=== PATIENT | male | born 1960 | race Caucasian/White ===

== ENCOUNTER 2019-07-28 19:25 | Inpatient (IN) ==
[2019-07-28] MEDS ORDERED: *HR* LORazepam 2 MG/ML VIAL IVP ONE (19:33)
[2019-07-28 19:46] LABS: Basophils % 0.6 %; Eosinophils % 0.2 %; Hematocrit 42.3 % (37.5-50.1); Hemoglobin 15.5 g/dL (12.9-16.9); Immature Granulocytes % 0.2 % (0-4); Lymphocytes # 1.6 K/mcL (0.6-4.6); Lymphocytes % 24.8 %; Mean Corpuscular HGB Conc 36.6 g/dL (31.6-35.5); Mean Corpuscular Hemoglobin 30.3 pg (28.0-33.3); Mean Corpuscular Volume 82.6 fL (83.0-100.0); Mean Platelet Volume 9.8 fL (9.4-12.4); Monocytes # 0.5 K/mcL (0.0-1.3); Monocytes % 7.8 %; Neutrophils # 4.4 K/mcL (1.6-8.9); Platelet Count 252 K/mcL (140-400); Red Blood Count 5.12 M/mcL (4.19-5.50); Segmented Neutrophils % 66.4 %; White Blood Count 6.5 K/mcL (4.3-11.1)
[2019-07-28 19:50] LABS: Bilirubin,Urine Negative (Negative); Blood,Urine Negative (Negative); Clarity,Urine Clear (Clear); Color,Urine Yellow (Yellow); Glucose,Urine (UA) 250 mg/dL (Normal); Ketones,Urine 40 mg/dL (Negative); Leukocyte Esterase,Urine Negative (Negative); Nitrite,Urine Negative (Negative); Protein,Urine Negative (Neg-Trace); Urobilinogen,Urine Normal (Normal)
[2019-07-28 20:00] LABS: Amphetamine Screen,Urine Negative ng/mL (Cutoff=1000); Barbiturate Screen,Urine Negative ng/mL (Cutoff=200); Benzodiazepines Screen,Urine Negative ng/mL (Cutoff=200); Cannabinoid Screen,Urine Negative ng/mL (Cutoff = 50); Cocaine Screen,Urine Negative ng/mL (Cutoff= 300); Opiate Screen,Urine Negative ng/mL (Cutoff=300); Phencyclidine Screen,Urine Negative ng/mL (Cutoff=25)
[2019-07-28 20:08] LABS: Acetaminophen < 10 mcg/mL (10-20); BUN/Creatinine Ratio 19 (6-26); Blood Urea Nitrogen 15 mg/dL (8-23); Calcium 10.1 mg/dL (8.6-10.3); Carbon Dioxide 26 mEq/L (23-29); Chloride 98 mEq/L (98-107); Ethanol < 10 mg/dL (Less than 10); Glucose 240 mg/dL (70-105); Osmolality,Calculated 289 (280-300); Potassium 3.3 mEq/L (3.5-5.1); Salicylate < 2.5 mg/dL (15.0-30.0); Sodium 135 mEq/L (136-145); Troponin I < 0.03 ng/mL (< 0.04); eGFR For African Americans > 60 (> 60); eGFR For Non-African Americans > 60 (> 60)
[2019-07-29] MEDS ORDERED: *HR* LORazepam 1 MG TABLET PO PRN (01:10)
[2019-07-29] MEDS ORDERED: *HR* LORazepam 2 MG/ML VIAL IM PRN (01:10)
[2019-07-29] MEDS ORDERED: Mag Hydrox/Al Hydrox/Simeth 30 ML UDC PO PRN (01:10)
[2019-07-29] MEDS ORDERED: Acetaminophen 325 MG TABLET PO PRN (01:10)
[2019-07-29] MEDS ORDERED: Haloperidol Lactate 5 MG/ML VIAL IM PRN (01:10)
[2019-07-29] MEDS ORDERED: hydrOXYzine pamoate 25 MG CAPSULE PO PRN (01:10)
[2019-07-29] MEDS ORDERED: MOM Conc 10 ML UD.LIQ PO PRN (01:10)
[2019-07-29] MEDS ORDERED: traZODone 50 MG TABLET PO PRN (01:10)
[2019-07-29] MEDS: ARIPiprazole 5 MG TABLET PO SCH (10:45)
[2019-07-29] MEDS: Saline Nasal Spray 44 ML BOTTLE NS PRN ×2 (18:16→20:59)
[2019-07-29] MEDS: QUEtiapine Fumarate 25 MG TABLET PO SCH (20:57)
[2019-07-29] MEDS: Lisinopril 20 MG TABLET PO SCH (20:57)
[2019-07-29] MEDS: Neosporin OINT 15 GM TUBE TP SCH (20:58)
[2019-07-30] MEDS: Saline Nasal Spray 44 ML BOTTLE NS PRN ×5 (03:19→20:48)
[2019-07-30] MEDS: Multivit/Ca/Min/Fe/FA 1 TAB TABLET PO SCH (08:54)
[2019-07-30] MEDS: amLODIPine 5 MG TABLET PO SCH (08:54)
[2019-07-30] MEDS: *HR* Metformin 500 MG TABLET PO SCH ×2 (08:54→17:35)
[2019-07-30] MEDS: ARIPiprazole 5 MG TABLET PO SCH (08:55)
[2019-07-30] MEDS: hydroCHLOROthiazide 25 MG TABLET PO SCH (08:55)
[2019-07-30] MEDS: Lisinopril 20 MG TABLET PO SCH ×2 (08:55→20:47)
[2019-07-30] MEDS: (Linagliptin [Tradjenta] 5 MG) PO SCH (09:00)
[2019-07-30] MEDS: Neosporin OINT 15 GM TUBE TP SCH ×2 (13:03→20:48)
[2019-07-30] MEDS: QUEtiapine Fumarate 25 MG TABLET PO SCH (20:47)
[2019-07-31] MEDS: Saline Nasal Spray 44 ML BOTTLE NS PRN ×3 (08:22→20:55)
[2019-07-31] MEDS: hydroCHLOROthiazide 25 MG TABLET PO SCH (08:23)
[2019-07-31] MEDS: Multivit/Ca/Min/Fe/FA 1 TAB TABLET PO SCH (08:23)
[2019-07-31] MEDS: *HR* Metformin 500 MG TABLET PO SCH ×2 (08:23→17:26)
[2019-07-31] MEDS: ARIPiprazole 5 MG TABLET PO SCH (08:23)
[2019-07-31] MEDS: (Linagliptin [Tradjenta] 5 MG) PO SCH (08:24)
[2019-07-31] MEDS: amLODIPine 5 MG TABLET PO SCH (08:24)
[2019-07-31] MEDS: Lisinopril 20 MG TABLET PO SCH ×2 (08:24→20:53)
[2019-07-31] MEDS: Neosporin OINT 15 GM TUBE TP SCH ×2 (08:25→20:55)
[2019-07-31] MEDS: QUEtiapine Fumarate 25 MG TABLET PO SCH (20:53)
[2019-08-01] MEDS: Saline Nasal Spray 44 ML BOTTLE NS PRN ×3 (03:09→11:33)
[2019-08-01] MEDS: hydroCHLOROthiazide 25 MG TABLET PO SCH (07:55)
[2019-08-01] MEDS: Multivit/Ca/Min/Fe/FA 1 TAB TABLET PO SCH (07:55)
[2019-08-01] MEDS: *HR* Metformin 500 MG TABLET PO SCH (07:55)
[2019-08-01] MEDS: ARIPiprazole 5 MG TABLET PO SCH (07:55)
[2019-08-01] MEDS: Lisinopril 20 MG TABLET PO SCH (07:55)
[2019-08-01] MEDS: (Linagliptin [Tradjenta] 5 MG) PO SCH (07:56)
[2019-08-01] MEDS: amLODIPine 5 MG TABLET PO SCH (07:59)
[2019-08-01] MEDS: Neosporin OINT 15 GM TUBE TP SCH (08:00)
[2019-08-01 09:11] VITALS: BP 153/91
== END 2019-08-01 12:55 | disposition home or self-care (01) | DRG 880 ==
LOC: EMEROOARM 19:25 → 1ANU 23:26
PROVIDERS: ADMIT Psychiatry & Neurology Psychiatry; ATTEND Psychiatry & Neurology Psychiatry

== ENCOUNTER 2020-03-08 15:45 | Inpatient (IN) ==
[2020-03-08 16:25] LABS: Basophils % 0.4 %; Eosinophils % 0.2 %; Hematocrit 44.7 % (37.5-50.1); Hemoglobin 15.1 g/dL (12.9-16.9); Immature Granulocytes % 0.4 % (0-4); Lymphocytes # 1.4 K/mcL (0.6-4.6); Lymphocytes % 17.8 %; Mean Corpuscular HGB Conc 33.8 g/dL (31.6-35.5); Mean Corpuscular Hemoglobin 29.3 pg (28.0-33.3); Mean Corpuscular Volume 86.8 fL (83.0-100.0); Mean Platelet Volume 9.5 fL (9.4-12.4); Monocytes # 0.7 K/mcL (0.0-1.3); Monocytes % 8.3 %; Neutrophils # 5.9 K/mcL (1.6-8.9); Platelet Count 256 K/mcL (140-400); Red Blood Count 5.15 M/mcL (4.19-5.50); Red Cell Distribution Width 12.6 % (11.5-14.5); Segmented Neutrophils % 72.9 %; White Blood Count 8.1 K/mcL (4.3-11.1)
[2020-03-08 16:37] LABS: Amphetamine Screen,Urine Negative ng/mL (Cutoff=1000); Barbiturate Screen,Urine Negative ng/mL (Cutoff=200); Benzodiazepines Screen,Urine Negative ng/mL (Cutoff=200); Cannabinoid Screen,Urine Negative ng/mL (Cutoff = 50); Cocaine Screen,Urine Negative ng/mL (Cutoff= 300); Opiate Screen,Urine Negative ng/mL (Cutoff=300); Phencyclidine Screen,Urine Negative ng/mL (Cutoff=25)
[2020-03-08 16:43] LABS: Albumin 4.6 g/dL (3.5-5.7); Albumin/Globulin Ratio 1.5 (1.1-2.2); Bilirubin,Direct 0.1 mg/dL (0.0-0.2); Bilirubin,Indirect 0.3 mg/dL (0.0-1.0); Bilirubin,Total 0.4 mg/dL (0.3-1.0); Total Protein 7.6 g/dL (6.4-8.9)
[2020-03-08 16:46] LABS: Bilirubin,Urine Negative (Negative); Blood,Urine Negative (Negative); Calcium Oxalate Crystals,Urine Present; Clarity,Urine Clear (Clear); Color,Urine Yellow (Yellow); Glucose,Urine (UA) 500 mg/dL (Normal); Hyaline Casts,Urine Moderate per lpf (None Seen); Ketones,Urine Trace mg/dL (Negative); Leukocyte Esterase,Urine Negative (Negative); Mucus,Urine Few per lpf (None-Few); Nitrite,Urine Negative (Negative); Protein,Urine 50 mg/dL (Neg-Trace); Specific Gravity,Urine > 1.030 (1.010-1.025); Squamous Epithelial Cell,Urine Few per hpf (None-Few)
[2020-03-08 16:47] LABS: Estimated Average Glucose 154 mg/dl
[2020-03-08 16:48] LABS: Acetaminophen < 10 mcg/mL (10-20); BUN/Creatinine Ratio 28 (6-26); Blood Urea Nitrogen 22 mg/dL (8-23); Calcium 10.3 mg/dL (8.6-10.3); Carbon Dioxide 31 mEq/L (23-29); Chloride 96 mEq/L (98-107); Chol/HDL Ratio 3.8 (0-4.9); Cholesterol 143 mg/dL (< 200); Ethanol < 10 mg/dL (Less than 10); Glucose 207 mg/dL (70-105); HDL Cholesterol 38 mg/dL (40-59); LDL Cholesterol,Calculated 73 mg/dL (< 100); Osmolality,Calculated 291 (280-300); Potassium 3.4 mEq/L (3.5-5.1); Salicylate < 2.5 mg/dL (15.0-30.0); Sodium 136 mEq/L (136-145); Triglycerides 158 mg/dL (< 150); eGFR For African Americans > 60 (> 60); eGFR For Non-African Americans > 60 (> 60)
[2020-03-08] MEDS ORDERED: haloperidoL 5 MG TABLET PO PRN (18:41)
[2020-03-08] MEDS ORDERED: MOM Conc 10 ML UD.LIQ PO PRN (18:41)
[2020-03-08] MEDS ORDERED: *HR* LORazepam 2 MG/ML VIAL IM PRN (18:41)
[2020-03-08] MEDS ORDERED: *HR* LORazepam 1 MG TABLET PO PRN (18:41)
[2020-03-08] MEDS ORDERED: Acetaminophen 325 MG TABLET PO PRN (18:41)
[2020-03-08] MEDS ORDERED: Haloperidol Lactate 5 MG/ML VIAL IM PRN (18:41)
[2020-03-08] MEDS ORDERED: Mag Hydrox/Al Hydrox/Simeth 30 ML UDC PO PRN (18:41)
[2020-03-08] MEDS: lisinopriL 20 MG TABLET PO SCH (20:53)
[2020-03-08] MEDS: traZODone 50 MG TABLET PO PRN (23:07)
[2020-03-08] MEDS: hydrOXYzine pamoate 25 MG CAPSULE PO PRN (23:52)
[2020-03-09] MEDS: Fluticasone Propionate Nasal 50 MCG/SPRAY BOTTLE NS SCH (08:35)
[2020-03-09] MEDS: hydroCHLOROthiazide 25 MG TABLET PO SCH (08:36)
[2020-03-09] MEDS: lisinopriL 20 MG TABLET PO SCH ×2 (08:36→20:44)
[2020-03-09] MEDS: *HR* Metformin 500 MG TABLET PO SCH ×2 (08:37→17:37)
[2020-03-09] MEDS: amLODIPine 5 MG TABLET PO SCH (08:37)
[2020-03-09] MEDS: Multivit/Ca/Min/Fe/FA 1 TAB TABLET PO SCH (08:38)
[2020-03-09] MEDS: ARIPiprazole 5 MG TABLET PO SCH (08:38)
[2020-03-09] MEDS ORDERED: ARIPiprazole 5 MG TABLET PO ONE (09:00)
[2020-03-09] MEDS: BuPROPion XL (24 HR) 150 MG TABLET PO SCH (09:44)
[2020-03-09] MEDS: traZODone 50 MG TABLET PO PRN (21:09)
[2020-03-10] MEDS: hydrOXYzine pamoate 25 MG CAPSULE PO PRN ×2 (02:10→09:13)
[2020-03-10] MEDS: Fluticasone Propionate Nasal 50 MCG/SPRAY BOTTLE NS SCH (08:26)
[2020-03-10] MEDS: lisinopriL 20 MG TABLET PO SCH ×2 (08:27→21:08)
[2020-03-10] MEDS: ARIPiprazole 5 MG TABLET PO SCH (08:27)
[2020-03-10] MEDS: hydroCHLOROthiazide 25 MG TABLET PO SCH (08:28)
[2020-03-10] MEDS: BuPROPion XL (24 HR) 150 MG TABLET PO SCH (08:28)
[2020-03-10] MEDS: amLODIPine 5 MG TABLET PO SCH (08:29)
[2020-03-10] MEDS: Multivit/Ca/Min/Fe/FA 1 TAB TABLET PO SCH (08:30)
[2020-03-10] MEDS: *HR* Metformin 500 MG TABLET PO SCH ×2 (08:30→17:05)
[2020-03-11] MEDS: traZODone 50 MG TABLET PO PRN (00:40)
[2020-03-11] MEDS: hydrOXYzine pamoate 25 MG CAPSULE PO PRN ×2 (01:55→08:30)
[2020-03-11] MEDS: ARIPiprazole 5 MG TABLET PO SCH (08:29)
[2020-03-11] MEDS: Multivit/Ca/Min/Fe/FA 1 TAB TABLET PO SCH (08:31)
[2020-03-11] MEDS: hydroCHLOROthiazide 25 MG TABLET PO SCH (08:31)
[2020-03-11] MEDS: BuPROPion XL (24 HR) 150 MG TABLET PO SCH (08:31)
[2020-03-11] MEDS: lisinopriL 20 MG TABLET PO SCH ×2 (08:31→21:00)
[2020-03-11] MEDS: amLODIPine 5 MG TABLET PO SCH (08:32)
[2020-03-11] MEDS: *HR* Metformin 500 MG TABLET PO SCH ×2 (08:32→16:32)
[2020-03-11] MEDS: Fluticasone Propionate Nasal 50 MCG/SPRAY BOTTLE NS SCH (08:32)
[2020-03-11] MEDS ORDERED: *HR* LORazepam 1 MG TABLET PO ONE (08:54)
[2020-03-11] MEDS ORDERED: ARIPiprazole 5 MG TABLET PO ONE (09:45)
[2020-03-11] MEDS: traZODone 50 MG TABLET PO SCH (21:00)
[2020-03-12] MEDS: traZODone 50 MG TABLET PO PRN (01:29)
[2020-03-12] MEDS: hydrOXYzine pamoate 25 MG CAPSULE PO PRN (01:29)
[2020-03-12] MEDS: lisinopriL 20 MG TABLET PO SCH ×2 (08:33→21:39)
[2020-03-12] MEDS: hydroCHLOROthiazide 25 MG TABLET PO SCH (08:33)
[2020-03-12] MEDS: amLODIPine 5 MG TABLET PO SCH (08:33)
[2020-03-12] MEDS: Multivit/Ca/Min/Fe/FA 1 TAB TABLET PO SCH (08:33)
[2020-03-12] MEDS: ARIPiprazole 10 MG TABLET PO SCH (08:33)
[2020-03-12] MEDS: *HR* Metformin 500 MG TABLET PO SCH ×2 (08:34→16:43)
[2020-03-12] MEDS: BuPROPion XL (24 HR) 150 MG TABLET PO SCH (08:34)
[2020-03-12] MEDS: Fluticasone Propionate Nasal 50 MCG/SPRAY BOTTLE NS SCH (08:35)
[2020-03-12] MEDS: traZODone 50 MG TABLET PO SCH (21:39)
[2020-03-13] MEDS: hydrOXYzine pamoate 25 MG CAPSULE PO PRN ×2 (00:17→23:54)
[2020-03-13] MEDS: ARIPiprazole 10 MG TABLET PO SCH (08:10)
[2020-03-13] MEDS: Multivit/Ca/Min/Fe/FA 1 TAB TABLET PO SCH (08:10)
[2020-03-13] MEDS: hydroCHLOROthiazide 25 MG TABLET PO SCH (08:10)
[2020-03-13] MEDS: amLODIPine 5 MG TABLET PO SCH (08:11)
[2020-03-13] MEDS: BuPROPion XL (24 HR) 150 MG TABLET PO SCH (08:11)
[2020-03-13] MEDS: *HR* Metformin 500 MG TABLET PO SCH ×2 (08:12→16:49)
[2020-03-13] MEDS: lisinopriL 20 MG TABLET PO SCH ×2 (08:12→20:54)
[2020-03-13] MEDS: Fluticasone Propionate Nasal 50 MCG/SPRAY BOTTLE NS SCH (08:15)
[2020-03-13] MEDS: traZODone 50 MG TABLET PO SCH (20:53)
[2020-03-14] MEDS: traZODone 50 MG TABLET PO PRN (01:23)
[2020-03-14] MEDS: Multivit/Ca/Min/Fe/FA 1 TAB TABLET PO SCH (08:24)
[2020-03-14] MEDS: hydroCHLOROthiazide 25 MG TABLET PO SCH (08:25)
[2020-03-14] MEDS: *HR* Metformin 500 MG TABLET PO SCH ×2 (08:25→17:15)
[2020-03-14] MEDS: BuPROPion XL (24 HR) 150 MG TABLET PO SCH (08:25)
[2020-03-14] MEDS: amLODIPine 5 MG TABLET PO SCH (08:26)
[2020-03-14] MEDS: ARIPiprazole 10 MG TABLET PO SCH (08:26)
[2020-03-14] MEDS: Fluticasone Propionate Nasal 50 MCG/SPRAY BOTTLE NS SCH (08:27)
[2020-03-14] MEDS: lisinopriL 20 MG TABLET PO SCH ×2 (08:27→20:29)
[2020-03-14] MEDS: traZODone 50 MG TABLET PO SCH (20:29)
[2020-03-14] MEDS: hydrOXYzine pamoate 25 MG CAPSULE PO PRN (22:43)
[2020-03-15] MEDS: lisinopriL 20 MG TABLET PO SCH ×2 (08:36→22:08)
[2020-03-15] MEDS: hydroCHLOROthiazide 25 MG TABLET PO SCH (08:37)
[2020-03-15] MEDS: *HR* Metformin 500 MG TABLET PO SCH ×2 (08:37→17:12)
[2020-03-15] MEDS: amLODIPine 5 MG TABLET PO SCH (08:41)
[2020-03-15] MEDS: BuPROPion XL (24 HR) 150 MG TABLET PO SCH (08:43)
[2020-03-15] MEDS: Multivit/Ca/Min/Fe/FA 1 TAB TABLET PO SCH (08:43)
[2020-03-15] MEDS: ARIPiprazole 10 MG TABLET PO SCH (08:43)
[2020-03-15] MEDS: Fluticasone Propionate Nasal 50 MCG/SPRAY BOTTLE NS SCH (08:44)
[2020-03-15] MEDS: traZODone 50 MG TABLET PO SCH ×2 (22:08→22:09)
[2020-03-16] MEDS: hydrOXYzine pamoate 25 MG CAPSULE PO PRN (01:28)
[2020-03-16] MEDS: ARIPiprazole 10 MG TABLET PO SCH (08:39)
[2020-03-16] MEDS: hydroCHLOROthiazide 25 MG TABLET PO SCH (08:39)
[2020-03-16] MEDS: amLODIPine 5 MG TABLET PO SCH (08:39)
[2020-03-16] MEDS: lisinopriL 20 MG TABLET PO SCH ×2 (08:40→21:58)
[2020-03-16] MEDS: BuPROPion XL (24 HR) 150 MG TABLET PO SCH (08:40)
[2020-03-16] MEDS: Multivit/Ca/Min/Fe/FA 1 TAB TABLET PO SCH (08:40)
[2020-03-16] MEDS: *HR* Metformin 500 MG TABLET PO SCH ×2 (08:41→17:23)
[2020-03-16] MEDS: Fluticasone Propionate Nasal 50 MCG/SPRAY BOTTLE NS SCH (08:43)
[2020-03-16] MEDS: traZODone 50 MG TABLET PO SCH ×2 (21:58)
[2020-03-17] MEDS: hydrOXYzine pamoate 25 MG CAPSULE PO PRN (00:31)
[2020-03-17] MEDS: BuPROPion XL (24 HR) 150 MG TABLET PO SCH (08:45)
[2020-03-17] MEDS: Multivit/Ca/Min/Fe/FA 1 TAB TABLET PO SCH (08:46)
[2020-03-17] MEDS: ARIPiprazole 10 MG TABLET PO SCH (08:46)
[2020-03-17] MEDS: amLODIPine 5 MG TABLET PO SCH (08:47)
[2020-03-17] MEDS: *HR* Metformin 500 MG TABLET PO SCH (08:47)
[2020-03-17] MEDS: lisinopriL 20 MG TABLET PO SCH (08:47)
[2020-03-17] MEDS: hydroCHLOROthiazide 25 MG TABLET PO SCH (08:48)
[2020-03-17] MEDS: Fluticasone Propionate Nasal 50 MCG/SPRAY BOTTLE NS SCH (08:49)
[2020-03-17 09:02] VITALS: BP 149/85
== END 2020-03-17 12:50 | disposition home or self-care (01) | DRG 885 ==
LOC: EMEROOARM 15:45 → SUATTDRO 18:36 → 1ANU 18:36
PROVIDERS: ADMIT Psychiatry & Neurology Psychiatry; ATTEND Psychiatry & Neurology Psychiatry

== ENCOUNTER 2020-11-15 13:44 | Inpatient (IN) ==
[2020-11-15] MEDS ORDERED: Isovue-370 500 ML BOTTLE IVP ONE (14:40)
[2020-11-15 15:11] LABS: Hematocrit 43.9 % (37.5-50.1); Hemoglobin 14.6 g/dL (12.9-16.9); Immature Granulocytes % 0.2 % (0-4); Lymphocytes # 0.4 K/mcL (0.6-4.6); Lymphocytes % 6.6 %; Mean Corpuscular HGB Conc 33.3 g/dL (31.6-35.5); Mean Corpuscular Volume 87.1 fL (83.0-100.0); Mean Platelet Volume 9.7 fL (9.4-12.4); Monocytes # 0.2 K/mcL (0.0-1.3); Monocytes % 3.8 %; Neutrophils # 5.7 K/mcL (1.6-8.9); Platelet Count 282 K/mcL (140-400); Red Blood Count 5.04 M/mcL (4.19-5.50); Red Cell Distribution Width 13.8 % (11.5-14.5); Segmented Neutrophils % 89.4 %; White Blood Count 6.4 K/mcL (4.3-11.1)
[2020-11-15 15:26] LABS: Alanine Aminotransferase 10 Units/L (7-52); Albumin 4.1 g/dL (3.5-5.7); Albumin/Globulin Ratio 1.2 (1.1-2.2); Alkaline Phosphatase 90 Units/L (34-104); Aspartate Amino Transferase 9 Units/L (13-39); BUN/Creatinine Ratio 21 (6-26); Bilirubin,Direct 0.2 mg/dL (0.0-0.2); Bilirubin,Indirect 0.6 mg/dL (0.0-1.0); Bilirubin,Total 0.8 mg/dL (0.3-1.0); Blood Urea Nitrogen 22 mg/dL (8-23); Calcium 10.2 mg/dL (8.6-10.3); Carbon Dioxide 35 mEq/L (23-29); Chloride 87 mEq/L (98-107); Globulin 3.3 g/dL (2.4-3.5); Glucose 185 mg/dL (70-105); Lipase 3 Units/L (11-82); Osmolality,Calculated 282 (280-300); Potassium 3.2 mEq/L (3.5-5.1); Sodium 132 mEq/L (136-145); Total Protein 7.4 g/dL (6.4-8.9); eGFR For African Americans > 60 (> 60); eGFR For Non-African Americans > 60 (> 60)
[2020-11-15] MEDS ORDERED: *HR* FentaNYL (PF) 100 MCG/2 ML VIAL IVP ONE (15:27)
[2020-11-15] MEDS ORDERED: Ondansetron 4 MG/2 ML VIAL IVP STA (15:27)
[2020-11-15] MEDS ORDERED: MetroNIDAZOLE 500 MG/100 ML 500 MG/100 ML BAG IVPB ONE (17:10)
[2020-11-15] MEDS ORDERED: cefTRIAXone 1,000 MG in Water for inj. (sterile) 10 ML IVP ONE (17:10)
[2020-11-15 17:18] LABS: Bilirubin,Urine Negative (Negative); Blood,Urine Negative (Negative); Clarity,Urine Clear (Clear); Color,Urine Light-Yellow (Yellow); Glucose,Urine (UA) Normal (Normal); Ketones,Urine Trace mg/dL (Negative); Leukocyte Esterase,Urine Negative (Negative); Nitrite,Urine Negative (Negative); PH,Urine 6.5 pH Units (5.0-8.0); Protein,Urine Trace mg/dL (Neg-Trace); Specific Gravity,Urine 1.024 (1.010-1.025); Urobilinogen,Urine Normal (Normal)
[2020-11-15] MEDS ORDERED: Morphine Sulfate 2 MG/ML SYRINGE IVP PRN ×2 (17:32→23:14)
[2020-11-15] MEDS ORDERED: levoFLOXacin 750 MG/150 ML 750 MG/150 ML BAG IVPB SCH (17:45)
[2020-11-15] MEDS ORDERED: Ondansetron 4 MG/2 ML VIAL IVP PRN ×2 (17:54→19:30)
[2020-11-15] MEDS ORDERED: Naloxone 0.4 MG/ML INJ IVP PRN ×3 (17:54→23:14)
[2020-11-15] MEDS ORDERED: *HR* HYDROcodone/Acet 5/325 mg TABLET PO PRN (17:58)
[2020-11-15] MEDS ORDERED: Acetaminophen 325 MG TABLET PO PRN ×2 (17:58→23:14)
[2020-11-15] MEDS ORDERED: 0.9 % Sodium Chloride 1,000 ML IVC SCH (18:00)
[2020-11-15] MEDS ORDERED: *HR* Heparin 5,000 UNIT/ML VIAL SQ SCH (18:00)
[2020-11-15 18:22] LABS: INR 1.1; Prothrombin Time 12.9 Seconds (9.4-12.1)
[2020-11-15] MEDS ORDERED: Promethazine 6.25 MG in Water for inj. (sterile) 20 ML IVPB PRN ×2 (19:30→23:14)
[2020-11-15] MEDS ORDERED: *HR* OxyCODONE Immed Rel 5 MG TABLET PO PRN (19:30)
[2020-11-15] MEDS ORDERED: *HR* HYDROmorphone PF 0.5 MG/0.5 ML SYRINGE IVP PRN (19:30)
[2020-11-15] MEDS: 0.9 % Sodium Chloride 1,000 ML IVC SCH ×2 (20:20→23:46)
[2020-11-15] MEDS ORDERED: *HR* FentaNYL (PF) 100 MCG/2 ML VIAL ONE (20:27)
[2020-11-15] MEDS ORDERED: *HR* Propofol 200 MG/20 ML VIAL IVP ONE (20:27)
[2020-11-15] MEDS ORDERED: Lidocaine -MPF 2% 2 ML VIAL ONE (20:28)
[2020-11-15] MEDS ORDERED: *HR* Rocuronium Bromide 50 MG/5 ML VIAL ONE (20:28)
[2020-11-15] MEDS ORDERED: Ondansetron 4 MG/2 ML VIAL ONE (20:28)
[2020-11-15] MEDS ORDERED: *HR* Succinylcholine 200 MG/10 ML VIAL IVP ONE (20:28)
[2020-11-15 20:29] LABS: Adenovirus Not Detected (Not Detect); Bordetella Pertussis Not Detected (Not Detect); Chlamydophila pneumoniae Not Detected (Not Detect); Coronavirus 229E Not Detected (Not Detect); Coronavirus HKU1 Not Detected (Not Detect); Coronavirus NL63 Not Detected (Not Detect); Coronavirus OC43 Not Detected (Not Detect); Human Metapneumovirus Not Detected (Not Detect); Human Rhinovirus/Enterovirus Not Detected (Not Detect); Influenza A Subtype 2009 H1 Not Detected (Not Detect); Influenza B Not Detected (Not Detect); Mycoplasma pneumoniae Not Detected (Not Detect); Parainfluenza Virus 1 Not Detected (Not Detect); Parainfluenza Virus 2 Not Detected (Not Detect); Parainfluenza Virus 3 Not Detected (Not Detect); Parainfluenza Virus 4 Not Detected (Not Detect); Respiratory Syncytial Virus Not Detected (Not Detect); SARS-CoV-2 Not Detected (Not Detect)
[2020-11-15] MEDS ORDERED: Acetaminophen IV 1,000 MG/100 ML BAG IVPB ONE (20:59)
[2020-11-15] MEDS ORDERED: Sugammadex Sodium 200 MG/2 ML VIAL IV ONE (21:22)
[2020-11-15] MEDS: MetroNIDAZOLE 500 MG/100 ML 500 MG/100 ML BAG IVPB SCH (23:52)
[2020-11-16] MEDS ORDERED: MetroNIDAZOLE 500 MG/100 ML 500 MG/100 ML BAG IVPB SCH
[2020-11-16 03:32] LABS: Hematocrit 35.3 % (37.5-50.1); Hemoglobin 12.2 g/dL (12.9-16.9); Immature Granulocytes % 0.1 % (0-4); Lymphocytes # 0.4 K/mcL (0.6-4.6); Lymphocytes % 4.4 %; Mean Corpuscular HGB Conc 34.6 g/dL (31.6-35.5); Mean Corpuscular Hemoglobin 29.7 pg (28.0-33.3); Mean Corpuscular Volume 85.9 fL (83.0-100.0); Mean Platelet Volume 9.8 fL (9.4-12.4); Monocytes # 0.4 K/mcL (0.0-1.3); Monocytes % 4.6 %; Neutrophils # 7.3 K/mcL (1.6-8.9); Platelet Count 189 K/mcL (140-400); Red Blood Count 4.11 M/mcL (4.19-5.50); Red Cell Distribution Width 14.2 % (11.5-14.5); Segmented Neutrophils % 90.9 %
[2020-11-16 03:50] LABS: BUN/Creatinine Ratio 21 (6-26); Blood Urea Nitrogen 25 mg/dL (8-23); Calcium 9.1 mg/dL (8.6-10.3); Carbon Dioxide 36 mEq/L (23-29); Chloride 90 mEq/L (98-107); Glucose 199 mg/dL (70-105); Osmolality,Calculated 286 (280-300); Potassium 3.3 mEq/L (3.5-5.1); Sodium 133 mEq/L (136-145); eGFR For African Americans > 60 (> 60); eGFR For Non-African Americans > 60 (> 60)
[2020-11-16] MEDS: MetroNIDAZOLE 500 MG/100 ML 500 MG/100 ML BAG IVPB SCH ×4 (05:01→23:08)
[2020-11-16] MEDS: Pantoprazole 40 MG VIAL IVP SCH (05:01)
[2020-11-16] MEDS: *HR* Heparin 5,000 UNIT/ML VIAL SQ SCH ×2 (05:05→18:24)
[2020-11-16] MEDS: 0.9 % Sodium Chloride 1,000 ML IVC SCH ×2 (05:27→08:44)
[2020-11-16] MEDS: BuPROPion XL (24 HR) 150 MG TABLET PO SCH (08:42)
[2020-11-16] MEDS: Fluticasone Propionate Nasal 50 MCG/SPRAY BOTTLE NS SCH (08:43)
[2020-11-16] MEDS: hydroCHLOROthiazide 25 MG TABLET PO SCH (08:43)
[2020-11-16] MEDS: *HR* Metformin 500 MG TABLET PO SCH ×2 (08:43→18:14)
[2020-11-16] MEDS: ARIPiprazole 10 MG TABLET PO SCH (08:43)
[2020-11-16] MEDS: lisinopriL 20 MG TABLET PO SCH ×2 (08:43→21:08)
[2020-11-16] MEDS: amLODIPine 5 MG TABLET PO SCH (08:43)
[2020-11-16] MEDS: *HR* SitaGLIPtin 25 MG TABLET PO SCH (08:45)
[2020-11-16] MEDS: Ondansetron 4 MG/2 ML VIAL IVP PRN ×2 (10:52→18:15)
[2020-11-16] MEDS: traZODone 50 MG TABLET PO SCH (21:08)
[2020-11-17] MEDS: Ondansetron 4 MG/2 ML VIAL IVP PRN ×3 (02:15→23:34)
[2020-11-17] MEDS: Pantoprazole 40 MG VIAL IVP SCH (04:58)
[2020-11-17] MEDS: MetroNIDAZOLE 500 MG/100 ML 500 MG/100 ML BAG IVPB SCH ×4 (04:58→23:33)
[2020-11-17] MEDS: *HR* Heparin 5,000 UNIT/ML VIAL SQ SCH ×2 (04:59→16:31)
[2020-11-17] MEDS: *HR* Metformin 500 MG TABLET PO SCH ×2 (07:38→16:21)
[2020-11-17] MEDS: BuPROPion XL (24 HR) 150 MG TABLET PO SCH (07:38)
[2020-11-17] MEDS: amLODIPine 5 MG TABLET PO SCH (07:38)
[2020-11-17] MEDS: ARIPiprazole 10 MG TABLET PO SCH (07:38)
[2020-11-17] MEDS: lisinopriL 20 MG TABLET PO SCH ×2 (07:38→21:34)
[2020-11-17] MEDS: hydroCHLOROthiazide 25 MG TABLET PO SCH (07:38)
[2020-11-17] MEDS: Fluticasone Propionate Nasal 50 MCG/SPRAY BOTTLE NS SCH (07:49)
[2020-11-17] MEDS: *HR* SitaGLIPtin 25 MG TABLET PO SCH (07:57)
[2020-11-17] MEDS: traZODone 50 MG TABLET PO SCH (21:35)
[2020-11-18] MEDS: *HR* Heparin 5,000 UNIT/ML VIAL SQ SCH ×2 (05:24→17:53)
[2020-11-18] MEDS: Pantoprazole 40 MG VIAL IVP SCH (05:24)
[2020-11-18] MEDS: MetroNIDAZOLE 500 MG/100 ML 500 MG/100 ML BAG IVPB SCH ×4 (05:25→23:13)
[2020-11-18 06:07] LABS: Basophils % 0.2 %; Eosinophils % 0.1 %; Hematocrit 38.8 % (37.5-50.1); Hemoglobin 12.4 g/dL (12.9-16.9); Immature Granulocytes % 0.4 % (0-4); Lymphocytes # 0.4 K/mcL (0.6-4.6); Lymphocytes % 4.8 %; Mean Corpuscular Hemoglobin 28.9 pg (28.0-33.3); Mean Corpuscular Volume 90.4 fL (83.0-100.0); Mean Platelet Volume 9.7 fL (9.4-12.4); Monocytes # 0.5 K/mcL (0.0-1.3); Monocytes % 5.9 %; Neutrophils # 7.6 K/mcL (1.6-8.9); Platelet Count 268 K/mcL (140-400); Red Blood Count 4.29 M/mcL (4.19-5.50); Red Cell Distribution Width 14.6 % (11.5-14.5); Segmented Neutrophils % 88.6 %; White Blood Count 8.5 K/mcL (4.3-11.1)
[2020-11-18 06:29] LABS: Calcium 9.3 mg/dL (8.6-10.3); Potassium 3.9 mEq/L (3.5-5.1)
[2020-11-18] MEDS: ARIPiprazole 10 MG TABLET PO SCH (08:23)
[2020-11-18] MEDS: BuPROPion XL (24 HR) 150 MG TABLET PO SCH (08:23)
[2020-11-18] MEDS: amLODIPine 5 MG TABLET PO SCH (08:23)
[2020-11-18] MEDS: Fluticasone Propionate Nasal 50 MCG/SPRAY BOTTLE NS SCH (08:24)
[2020-11-18] MEDS ORDERED: 0.9 % Sodium Chloride 500 ML IVC ONE (09:05)
[2020-11-18] MEDS ORDERED: Metoclopramide 10 MG/2 ML VIAL IVP SCH (09:15)
[2020-11-18] MEDS: Metoclopramide 20 MG in 0.9 % Sodium Chloride 50 ML IVPB SCH ×2 (10:42→19:02)
[2020-11-18 13:45] LABS: Calcium 9.3 mg/dL (8.6-10.3); Potassium 3.7 mEq/L (3.5-5.1)
[2020-11-18] MEDS ORDERED: 0.9 % Sodium Chloride 1,000 ML IVC SCH (17:45)
[2020-11-18] MEDS: traZODone 50 MG TABLET PO SCH (20:35)
[2020-11-19] MEDS: Metoclopramide 20 MG in 0.9 % Sodium Chloride 50 ML IVPB SCH ×3 (00:24→17:39)
[2020-11-19] MEDS: MetroNIDAZOLE 500 MG/100 ML 500 MG/100 ML BAG IVPB SCH ×4 (05:16→23:49)
[2020-11-19] MEDS: *HR* Heparin 5,000 UNIT/ML VIAL SQ SCH ×2 (05:16→17:40)
[2020-11-19] MEDS: Pantoprazole 40 MG VIAL IVP SCH (05:17)
[2020-11-19 06:41] LABS: Basophils % 0.2 %; Hematocrit 37.6 % (37.5-50.1); Hemoglobin 12.3 g/dL (12.9-16.9); Immature Granulocytes % 0.3 % (0-4); Lymphocytes # 0.3 K/mcL (0.6-4.6); Lymphocytes % 4.1 %; Mean Corpuscular HGB Conc 32.7 g/dL (31.6-35.5); Mean Corpuscular Hemoglobin 28.8 pg (28.0-33.3); Mean Corpuscular Volume 88.1 fL (83.0-100.0); Mean Platelet Volume 9.4 fL (9.4-12.4); Monocytes # 0.4 K/mcL (0.0-1.3); Monocytes % 6.6 %; Neutrophils # 5.5 K/mcL (1.6-8.9); Platelet Count 299 K/mcL (140-400); Red Blood Count 4.27 M/mcL (4.19-5.50); Red Cell Distribution Width 14.2 % (11.5-14.5); Segmented Neutrophils % 88.8 %; White Blood Count 6.2 K/mcL (4.3-11.1)
[2020-11-19 07:03] LABS: Calcium 9.2 mg/dL (8.6-10.3); Potassium 3.5 mEq/L (3.5-5.1)
[2020-11-19] MEDS ORDERED: 0.9 % Sodium Chloride 1,000 ML IVC ONE (07:04)
[2020-11-19] MEDS: ARIPiprazole 10 MG TABLET PO SCH (11:08)
[2020-11-19] MEDS: Fluticasone Propionate Nasal 50 MCG/SPRAY BOTTLE NS SCH (11:09)
[2020-11-19] MEDS: BuPROPion XL (24 HR) 150 MG TABLET PO SCH (11:09)
[2020-11-19] MEDS: amLODIPine 5 MG TABLET PO SCH (11:09)
[2020-11-19] MEDS ORDERED: Haloperidol Lactate 5 MG/ML VIAL IM ONE (17:46)
[2020-11-19] MEDS ORDERED: *HR* LORazepam 2 MG/ML VIAL IM STA (17:47)
[2020-11-19] MEDS ORDERED: *HR* LORazepam 2 MG/ML VIAL IVP PRN (19:07)
[2020-11-19] MEDS: traZODone 50 MG TABLET PO SCH (20:41)
[2020-11-19] MEDS ORDERED: *HR* LORazepam 2 MG/ML VIAL IM ONE (23:08)
[2020-11-20] MEDS: Metoclopramide 20 MG in 0.9 % Sodium Chloride 50 ML IVPB SCH ×3 (00:57→17:30)
[2020-11-20] MEDS ORDERED: *HR* LORazepam 2 MG/ML VIAL IM PRN (01:35)
[2020-11-20] MEDS: Pantoprazole 40 MG VIAL IVP SCH (05:10)
[2020-11-20] MEDS: MetroNIDAZOLE 500 MG/100 ML 500 MG/100 ML BAG IVPB SCH ×4 (05:10→23:14)
[2020-11-20] MEDS: *HR* Heparin 5,000 UNIT/ML VIAL SQ SCH ×2 (05:10→17:30)
[2020-11-20 07:22] LABS: Hematocrit 38.8 % (37.5-50.1); Hemoglobin 12.8 g/dL (12.9-16.9); Mean Corpuscular Hemoglobin 28.8 pg (28.0-33.3); Mean Corpuscular Volume 87.4 fL (83.0-100.0); Platelet Count 278 K/mcL (140-400); Red Blood Count 4.44 M/mcL (4.19-5.50); Red Cell Distribution Width 13.9 % (11.5-14.5); White Blood Count 4.8 K/mcL (4.3-11.1)
[2020-11-20 07:36] LABS: BUN/Creatinine Ratio 30 (6-26); Blood Urea Nitrogen 41 mg/dL (8-23); Calcium 9.4 mg/dL (8.6-10.3); Carbon Dioxide 28 mEq/L (23-29); Chloride 100 mEq/L (98-107); Glucose 172 mg/dL (70-105); Osmolality,Calculated 298 (280-300); Potassium 3.4 mEq/L (3.5-5.1); Sodium 137 mEq/L (136-145); eGFR For African Americans > 60 (> 60); eGFR For Non-African Americans 52 (> 60)
[2020-11-20] MEDS: BuPROPion XL (24 HR) 150 MG TABLET PO SCH (10:53)
[2020-11-20] MEDS: amLODIPine 5 MG TABLET PO SCH (10:53)
[2020-11-20] MEDS: ARIPiprazole 10 MG TABLET PO SCH (10:53)
[2020-11-20] MEDS: Fluticasone Propionate Nasal 50 MCG/SPRAY BOTTLE NS SCH (10:53)
[2020-11-20] MEDS ORDERED: Potassium Chloride Elixir 20 MEQ/15 ML UDC PO ONE (16:30)
[2020-11-20] MEDS: traZODone 50 MG TABLET PO SCH (20:20)
[2020-11-21] MEDS: Metoclopramide 20 MG in 0.9 % Sodium Chloride 50 ML IVPB SCH ×3 (00:12→17:19)
[2020-11-21] MEDS: *HR* Heparin 5,000 UNIT/ML VIAL SQ SCH ×2 (04:37→17:21)
[2020-11-21] MEDS: MetroNIDAZOLE 500 MG/100 ML 500 MG/100 ML BAG IVPB SCH ×3 (04:37→17:20)
[2020-11-21] MEDS: Pantoprazole 40 MG VIAL IVP SCH (04:38)
[2020-11-21 07:43] LABS: BUN/Creatinine Ratio 24 (6-26); Blood Urea Nitrogen 33 mg/dL (8-23); Calcium 9.1 mg/dL (8.6-10.3); Carbon Dioxide 26 mEq/L (23-29); Chloride 103 mEq/L (98-107); Glucose 196 mg/dL (70-105); Osmolality,Calculated 299 (280-300); Potassium 3.3 mEq/L (3.5-5.1); Sodium 138 mEq/L (136-145); eGFR For African Americans > 60 (> 60); eGFR For Non-African Americans 54 (> 60)
[2020-11-21] MEDS: Fluticasone Propionate Nasal 50 MCG/SPRAY BOTTLE NS SCH (07:44)
[2020-11-21] MEDS: amLODIPine 5 MG TABLET PO SCH (07:44)
[2020-11-21] MEDS: ARIPiprazole 10 MG TABLET PO SCH (07:44)
[2020-11-21] MEDS: BuPROPion XL (24 HR) 150 MG TABLET PO SCH (07:44)
[2020-11-21] MEDS ORDERED: Potassium Chloride Elixir 20 MEQ/15 ML UDC PO ONE (08:42)
[2020-11-21] MEDS ORDERED: hydrOXYzine pamoate 25 MG CAPSULE PO STA (15:19)
[2020-11-21] MEDS: traZODone 50 MG TABLET PO SCH (19:48)
[2020-11-21] MEDS: 0.9 % Sodium Chloride 1,000 ML IVC SCH (22:31)
[2020-11-22] MEDS: MetroNIDAZOLE 500 MG/100 ML 500 MG/100 ML BAG IVPB SCH ×4 (01:07→18:58)
[2020-11-22 02:21] LABS: BUN/Creatinine Ratio 22 (6-26); Blood Urea Nitrogen 29 mg/dL (8-23); Calcium 9.5 mg/dL (8.6-10.3); Carbon Dioxide 21 mEq/L (23-29); Chloride 105 mEq/L (98-107); Glucose 211 mg/dL (70-105); Osmolality,Calculated 292 (280-300); Potassium 3.6 mEq/L (3.5-5.1); Sodium 135 mEq/L (136-145); eGFR For African Americans > 60 (> 60); eGFR For Non-African Americans 56 (> 60)
[2020-11-22] MEDS: Metoclopramide 20 MG in 0.9 % Sodium Chloride 50 ML IVPB SCH ×3 (02:30→16:56)
[2020-11-22] MEDS: Pantoprazole 40 MG VIAL IVP SCH (05:52)
[2020-11-22] MEDS: *HR* Heparin 5,000 UNIT/ML VIAL SQ SCH ×2 (05:52→16:57)
[2020-11-22] MEDS: BuPROPion XL (24 HR) 150 MG TABLET PO SCH (07:42)
[2020-11-22] MEDS: ARIPiprazole 10 MG TABLET PO SCH (07:42)
[2020-11-22] MEDS: amLODIPine 5 MG TABLET PO SCH (07:42)
[2020-11-22] MEDS: Fluticasone Propionate Nasal 50 MCG/SPRAY BOTTLE NS SCH (07:43)
[2020-11-22] MEDS: 0.9 % Sodium Chloride 1,000 ML IVC SCH ×2 (09:41→17:58)
[2020-11-22 10:04] LABS: Basophils % 0.4 %; Eosinophils % 0.3 %; Hematocrit 38.3 % (37.5-50.1); Hemoglobin 12.6 g/dL (12.9-16.9); Immature Granulocytes % 0.7 % (0-4); Lymphocytes # 0.7 K/mcL (0.6-4.6); Lymphocytes % 9.3 %; Mean Corpuscular HGB Conc 32.9 g/dL (31.6-35.5); Mean Corpuscular Hemoglobin 28.8 pg (28.0-33.3); Mean Corpuscular Volume 87.4 fL (83.0-100.0); Mean Platelet Volume 9.1 fL (9.4-12.4); Monocytes # 0.8 K/mcL (0.0-1.3); Monocytes % 10.8 %; Neutrophils # 5.8 K/mcL (1.6-8.9); Platelet Count 377 K/mcL (140-400); Red Blood Count 4.38 M/mcL (4.19-5.50); Red Cell Distribution Width 14.2 % (11.5-14.5); Segmented Neutrophils % 78.5 %
[2020-11-22 10:21] LABS: White Blood Count 7.4 K/mcL (4.3-11.1)
[2020-11-22] MEDS: traZODone 50 MG TABLET PO SCH (21:30)
[2020-11-23] MEDS: MetroNIDAZOLE 500 MG/100 ML 500 MG/100 ML BAG IVPB SCH ×4 (00:56→18:07)
[2020-11-23] MEDS: Metoclopramide 20 MG in 0.9 % Sodium Chloride 50 ML IVPB SCH ×3 (02:01→20:58)
[2020-11-23] MEDS: 0.9 % Sodium Chloride 1,000 ML IVC SCH ×2 (02:47→18:06)
[2020-11-23] MEDS: *HR* Heparin 5,000 UNIT/ML VIAL SQ SCH ×2 (05:56→18:08)
[2020-11-23] MEDS: Pantoprazole 40 MG VIAL IVP SCH (05:56)
[2020-11-23 06:28] LABS: Basophils % 0.2 %; Eosinophils % 0.3 %; Hematocrit 34.9 % (37.5-50.1); Hemoglobin 11.8 g/dL (12.9-16.9); Immature Granulocytes % 0.6 % (0-4); Lymphocytes # 0.8 K/mcL (0.6-4.6); Mean Corpuscular HGB Conc 33.8 g/dL (31.6-35.5); Mean Corpuscular Hemoglobin 29.5 pg (28.0-33.3); Mean Corpuscular Volume 87.3 fL (83.0-100.0); Monocytes # 0.8 K/mcL (0.0-1.3); Monocytes % 8.3 %; Neutrophils # 7.9 K/mcL (1.6-8.9); Platelet Count 338 K/mcL (140-400); Red Cell Distribution Width 14.5 % (11.5-14.5); Segmented Neutrophils % 82.6 %; White Blood Count 9.5 K/mcL (4.3-11.1)
[2020-11-23 06:44] LABS: Calcium 8.7 mg/dL (8.6-10.3); Potassium 3.7 mEq/L (3.5-5.1)
[2020-11-23] MEDS ORDERED: levoFLOXacin 750 MG/150 ML 750 MG/150 ML BAG IVPB SCH (09:00)
[2020-11-23] MEDS: BuPROPion XL (24 HR) 150 MG TABLET PO SCH (10:45)
[2020-11-23] MEDS: amLODIPine 5 MG TABLET PO SCH (10:45)
[2020-11-23] MEDS: ARIPiprazole 10 MG TABLET PO SCH (10:45)
[2020-11-23] MEDS: Fluticasone Propionate Nasal 50 MCG/SPRAY BOTTLE NS SCH (11:09)
[2020-11-23] MEDS: traZODone 50 MG TABLET PO SCH (20:58)
[2020-11-24] MEDS: MetroNIDAZOLE 500 MG/100 ML 500 MG/100 ML BAG IVPB SCH ×4 (04:19→20:12)
[2020-11-24] MEDS: Metoclopramide 20 MG in 0.9 % Sodium Chloride 50 ML IVPB SCH ×3 (04:38→20:58)
[2020-11-24 05:23] LABS: Hematocrit 34.9 % (37.5-50.1); Hemoglobin 11.8 g/dL (12.9-16.9); Mean Corpuscular HGB Conc 33.8 g/dL (31.6-35.5); Mean Corpuscular Hemoglobin 29.4 pg (28.0-33.3); Mean Corpuscular Volume 86.8 fL (83.0-100.0); Mean Platelet Volume 8.6 fL (9.4-12.4); Platelet Count 282 K/mcL (140-400); Red Blood Count 4.02 M/mcL (4.19-5.50); Red Cell Distribution Width 14.4 % (11.5-14.5); White Blood Count 9.8 K/mcL (4.3-11.1)
[2020-11-24 05:42] LABS: BUN/Creatinine Ratio 24 (6-26); Blood Urea Nitrogen 26 mg/dL (8-23); Calcium 8.4 mg/dL (8.6-10.3); Carbon Dioxide 32 mEq/L (23-29); Chloride 104 mEq/L (98-107); Glucose 155 mg/dL (70-105); Osmolality,Calculated 306 (280-300); Potassium 3.3 mEq/L (3.5-5.1); Sodium 144 mEq/L (136-145); eGFR For African Americans > 60 (> 60); eGFR For Non-African Americans > 60 (> 60)
[2020-11-24] MEDS: 0.9 % Sodium Chloride 1,000 ML IVC SCH (10:09)
[2020-11-24] MEDS: *HR* Heparin 5,000 UNIT/ML VIAL SQ SCH ×2 (10:09→20:13)
[2020-11-24] MEDS: Pantoprazole 40 MG VIAL IVP SCH (10:09)
[2020-11-24] MEDS: Sennosides/Docusate Sodium TABLET PO SCH ×2 (10:11→20:12)
[2020-11-24] MEDS: BuPROPion XL (24 HR) 150 MG TABLET PO SCH (10:11)
[2020-11-24] MEDS: amLODIPine 5 MG TABLET PO SCH (10:11)
[2020-11-24] MEDS: ARIPiprazole 10 MG TABLET PO SCH (10:11)
[2020-11-24] MEDS: Lactobacillus 1 EACH CAP.SPRINK PO SCH (10:11)
[2020-11-24] MEDS: Fluticasone Propionate Nasal 50 MCG/SPRAY BOTTLE NS SCH (10:12)
[2020-11-24] MEDS ORDERED: Potassium Chloride Elixir 20 MEQ/15 ML UDC PO ONE (11:16)
[2020-11-24] MEDS: levoFLOXacin 750 MG/150 ML 750 MG/150 ML BAG IVPB SCH (19:00)
[2020-11-24] MEDS: traZODone 50 MG TABLET PO SCH (20:12)
[2020-11-25] MEDS: MetroNIDAZOLE 500 MG/100 ML 500 MG/100 ML BAG IVPB SCH ×3 (01:14→15:59)
[2020-11-25] MEDS: Metoclopramide 20 MG in 0.9 % Sodium Chloride 50 ML IVPB SCH ×2 (05:04→16:00)
[2020-11-25] MEDS: Pantoprazole 40 MG VIAL IVP SCH (05:05)
[2020-11-25] MEDS: *HR* Heparin 5,000 UNIT/ML VIAL SQ SCH (05:05)
[2020-11-25 05:22] LABS: Hematocrit 37.9 % (37.5-50.1); Hemoglobin 12.1 g/dL (12.9-16.9); Mean Corpuscular HGB Conc 31.9 g/dL (31.6-35.5); Mean Corpuscular Hemoglobin 28.6 pg (28.0-33.3); Mean Corpuscular Volume 89.6 fL (83.0-100.0); Mean Platelet Volume 8.8 fL (9.4-12.4); Platelet Count 345 K/mcL (140-400); Red Blood Count 4.23 M/mcL (4.19-5.50); Red Cell Distribution Width 14.8 % (11.5-14.5); White Blood Count 13.5 K/mcL (4.3-11.1)
[2020-11-25 05:45] LABS: BUN/Creatinine Ratio 23 (6-26); Blood Urea Nitrogen 24 mg/dL (8-23); Carbon Dioxide 31 mEq/L (23-29); Chloride 103 mEq/L (98-107); Glucose 142 mg/dL (70-105); Osmolality,Calculated 296 (280-300); Potassium 4.2 mEq/L (3.5-5.1); Sodium 140 mEq/L (136-145); eGFR For African Americans > 60 (> 60); eGFR For Non-African Americans > 60 (> 60)
[2020-11-25] MEDS: amLODIPine 5 MG TABLET PO SCH (09:55)
[2020-11-25] MEDS: ARIPiprazole 10 MG TABLET PO SCH (09:56)
[2020-11-25] MEDS: Fluticasone Propionate Nasal 50 MCG/SPRAY BOTTLE NS SCH (09:56)
[2020-11-25] MEDS: Sennosides/Docusate Sodium TABLET PO SCH (09:56)
[2020-11-25] MEDS: BuPROPion XL (24 HR) 150 MG TABLET PO SCH (09:56)
[2020-11-25] MEDS: Lactobacillus 1 EACH CAP.SPRINK PO SCH (09:56)
[2020-11-25 10:32] VITALS: BP 155/94
[2020-11-25] MEDS: levoFLOXacin 750 MG/150 ML 750 MG/150 ML BAG IVPB SCH (17:01)
== END 2020-11-25 17:56 | DRG 330 ==
LOC: 3BNU 13:44 → EMEROOARM 13:44 → SUATTDRO 17:38 → 3BNU 18:52
PROVIDERS: ADMIT Internal Medicine; ATTEND Student in an Organized Health Care Education/Training Program